=== PATIENT | male | born 1965 | race Caucasian/White ===

== ENCOUNTER 2018-07-30 11:17 | Emergency (ER) | payer MEDICAID ==
[2018-07-30] MEDS ORDERED: Sodium Chloride 0.9% 1000 ML 1,000 ML ONE (11:24)
[2018-07-30] MEDS ORDERED: Zofran 4 MG/2 ML VIAL ONE (11:24)
[2018-07-30] MEDS ORDERED: TORAdol 30 mg Injection ONE (11:24)
[2018-07-30] MEDS ORDERED: Sodium Chloride 0.9% 1000 ML 1,000 ML IV STA (11:30)
[2018-07-30] MEDS ORDERED: Zofran 4 MG/2 ML VIAL IV ONE (11:30)
[2018-07-30] MEDS ORDERED: TORAdol 30 mg Injection IV ONE (11:30)
[2018-07-30 11:33] VITALS: O2SAT 98
[2018-07-30] MEDS ORDERED: MORPHINE SULFATE 4 MG INJ IV ONE ×2 (11:35→11:42)
--- NOTE | 2018-07-30 11:35 | ERPHSYRPT ---
- History of Present Illness Time Seen by Provider: 07/30/18 11:27 Historian: patient Exam Limitations: no limitations Physician History: 53-year-old white male arrives with complaint of severe pain in his right flank radiating to his right groin symptoms for one half hour she denies any injury no nausea no vomiting no dysuria no hematuria. Past medical history is negative. Past surgical history is negative. Social history patient denies tobacco alcohol illicit drug use Timing/Duration: today (on a half hours ago) Activities at Onset: none Quality: aching, sharpness Abdominal Pain Onset Location: RLQ, flank (right flank) Severity of Pain-Max: moderate Severity of Pain-Current: moderate Modifying Factors: Improves With: nothing Associated Symptoms: back (right flank pain), testicular pain, No chest pain, No diaphoresis, No diarrhea, No fever/chills, No fatigue, No heartburn, No loss of appetite, No nausea, No neck pain, No rash, No shortness of breath, No syncope, No vomiting, No weakness Previous symptoms: no prior history Allergies/Adverse Reactions: No Known Drug Allergies Allergy (Verified 07/30/18 11:22) Home Medications: No Home Meds [No Home Meds] 1 ea UD 01/11/14 [History] Hx Tetanus, Diphtheria Vaccination/Date Given: No Hx Influenza Vaccination/Date Given: No Hx Pneumococcal Vaccination/Date Given: No - Review of Systems Constitutional: No Fever, No Chills Eyes: No Symptoms Ears, Nose, & Throat: No Symptoms Respiratory: No Cough, No Dyspnea Cardiac: No Chest Pain, No Edema, No Syncope Abdominal/Gastrointestinal: Abdominal Pain (rright-sided abdominal pain), No Nausea, No Vomiting, No Diarrhea, No Constipation, No Hematemesis, No Hematochezia, No Melena, No Dysphagia Genitourinary Symptoms: Flank Pain (right flank pain), No Dysuria, No Frequency , No Hematuria, No Hesitancy, No Incontinence, No Urgency, No Urinary Retention (for) Musculoskeletal: No Back Pain, No Neck Pain Skin: No Rash Neurological: No Dizziness, No Focal Weakness, No Sensory Changes Psychological: No Symptoms Endocrine: No Symptoms All Other Systems: Reviewed and Negative - Past Medical History Pertinent Past Medical History: No - Past Surgical History Past Surgical History: No - Social History Smoking Status: Never smoker Exposure to second hand smoke: No Drug Use: none Patient Lives Alone: No - Nursing Vital Signs Nursing Vital Signs: Initial Vital Signs Temperature 97.0 F 07/30/18 11:29 Pulse Rate 104 H 07/30/18 11:29 Respiratory Rate 20 07/30/18 11:29 Blood Pressure 177/98 07/30/18 11:29 O2 Sat by Pulse Oximetry 98 07/30/18 11:29 Pain Scale Pain Intensity 4 - Physical Exam General Appearance: moderate distress, alert Eye Exam: PERRL/EOMI, eyes nml inspection Ears, Nose, Throat Exam: normal ENT inspection, pharynx normal, moist mucous membranes Neck Exam: normal inspection, non-tender, supple, full range of motion Respiratory Exam: normal breath sounds, lungs clear, No respiratory distress Cardiovascular Exam: regular rate/rhythm, normal heart sounds, capillary refill <2 sec Gastrointestinal/Abdomen Exam: soft, No tenderness, No mass Back Exam: CVA tenderness (right flank tenderness) Extremity Exam: normal inspection, normal range of motion, pelvis stable Neurologic Exam: alert, oriented x 3, cooperative, oriental medicine practitioner II-XII nml as tested, normal mood/affect, nml cerebellar function, sensation nml, No motor deficits Skin Exam: normal color, warm, dry SpO2 Interpretation: normal - Course Nursing assessment & vital signs reviewed: Yes - CT Exams Abdomen/Pelvis CT Interpretation: Discussed w/radiologist (CT abdomen and pelvis: Impression 1. Right posterior urinary bladder microcalculus, there is also mild right hydronephrosis and hydroureter from recent passage of calculus. 2. Additional bilateral renal mitral calculi and incidental bilateral renal cysts. 3. Small hiatal hernia. Distal esophagus circumferential wall thickening concerning for reflux esophagitis.) Ordered Tests: Active Orders 24 hr Category Date Time Status ABDOMEN AND PELVIS W/0 CONTRAS [CT] Stat Exams 07/30/18 11:30 Completed AMYLASE Stat Lab 07/30/18 11:25 Completed CBC W DIFF Stat Lab 07/30/18 11:25 Completed CMP Stat Lab 07/30/18 11:25 Completed LIPASE Stat Lab 07/30/18 11:25 Completed UA W/RFX UR CULTURE Stat Lab 07/30/18 13:00 Completed Urine Triage Profile Stat Lab 07/30/18 13:00 Ordered Medication Summary Discontinued Medications Generic Name Dose Route Start Last Admin Trade Name Freq PRN Reason Stop Dose Admin Sodium Chloride Confirm 07/30/18 11:24 Sodium Chloride 0.9% 1000 Ml Administered 07/30/18 11:25 Dose 1,000 mls @ ud .ROUTE .STK-MED ONE Sodium Chloride 1,000 mls @ 999 mls/hr 07/30/18 11:30 07/30/18 12:55 Sodium Chloride 0.9% 1000 Ml IV 07/30/18 12:30 Infused .Q1H1M STA Infusion Ketorolac Tromethamine Confirm 07/30/18 11:24 Toradol 30 Mg Injection Administered 07/30/18 11:25 Dose 30 mg .ROUTE .STK-MED ONE Ketorolac Tromethamine 30 mg 07/30/18 11:30 07/30/18 11:39 Toradol 30 Mg Injection IV 07/30/18 11:31 30 mg STAT ONE Administration Morphine Sulfate 4 mg 07/30/18 11:35 07/30/18 11:40 Morphine Sulfate 4 Mg Inj IV 07/30/18 11:36 4 mg STAT ONE Administration Morphine Sulfate Confirm 07/30/18 11:36 Morphine Sulfate 4 Mg Inj Administered 07/30/18 11:37 Dose 4 mg .ROUTE .STK-MED ONE Morphine Sulfate 4 mg 07/30/18 11:42 07/30/18 11:45 Morphine Sulfate 4 Mg Inj IV 07/30/18 11:43 4 mg STAT ONE Administration Morphine Sulfate Confirm 07/30/18 11:45 Morphine Sulfate 4 Mg Inj Administered 07/30/18 11:46 Dose 4 mg .ROUTE .STK-MED ONE Ondansetron HCl Confirm 07/30/18 11:24 Zofran 4 Mg/2 Ml Vial Administered 07/30/18 11:25 Dose 4 mg .ROUTE .STK-MED ONE Ondansetron HCl 4 mg 07/30/18 11:30 07/30/18 11:39 Zofran 4 Mg/2 Ml Vial IV 07/30/18 11:31 4 mg STAT ONE Administration Lab/Rad Data: Laboratory Result Diagrams 07/30/18 11:25 07/30/18 11:25 Laboratory Results 07/30/18 07/30/18 07/30/18 Range/Units 13:00 11:25 11:25 WBC 15.7 H (4.0-10.5) K/mm3 RBC 4.35 (4.1-5.6) M/mm3 Hgb 14.2 (12.5-18.0) gm/dl Hct 42.1 (42-50) % MCV 96.8 (78-100) fl MCH 32.6 H (26-32) pg MCHC 33.7 (32-36) g/dl RDW 13.2 (11.5-14.0) % Plt Count 213 (150-450) K/mm3 MPV 10.0 H (6-9.5) fl Gran % 80.9 H (36.0-66.0) % Eos # (Auto) 0.26 (0-0.5) Absolute Lymphs (auto) 1.65 (1.0-4.6) Absolute Monos (auto) 1.04 (0.0-1.3) Lymphocytes % 10.5 L (24.0-44.0) % Monocytes % 6.6 (0.0-12.0) % Eosinophils % 1.7 (0.00-5.0) % Basophils % 0.3 (0.0-0.4) % Absolute Granulocytes 12.70 H (1.4-6.9) Basophils # 0.04 (0-0.4) Sodium 138 (137-145) mmol/L Potassium 3.7 (3.5-5.1) mmol/L Chloride 105 (98-107) mmol/L Carbon Dioxide 21 L (22-30) mmol/L Anion Gap 15.8 H (5-15) MEQ/L BUN 17 (9-20) mg/dL Creatinine 0.80 (0.66-1.25) mg/dL Estimated GFR > 60.0 ML/MIN Glucose 138 H (74-106) mg/dL Calcium 9.9 (8.4-10.2) mg/dL Total Bilirubin 0.30 (0.2-1.3) mg/dL AST 21 (17-59) U/L ALT 20 (0-50) U/L Alkaline Phosphatase 55 (38-126) U/L Serum Total Protein 7.8 (6.3-8.2) g/dL Albumin 4.7 (3.5-5.0) g/dL Amylase 64 (30-110) U/L Lipase 54 (23-300) U/L Urine Color YELLOW (YELLOW) Urine Appearance CLEAR (CLEAR) Urine pH 6.0 (5-6) Ur Specific Mccleary 1.014 (1.005-1.025) Urine Protein NEGATIVE (Negative) Urine Ketones SMALL (NEGATIVE) Urine Blood NEGATIVE (0-5) Bradley/ul Urine Nitrite NEGATIVE (NEGATIVE) Urine Bilirubin NEGATIVE (NEGATIVE) Urine Urobilinogen NEGATIVE (0-1) mg/dL Ur Leukocyte Esterase NEGATIVE (NEGATIVE) Urine WBC (Auto) 3-5 (0-5) /HPF Urine RBC (Auto) 3-5 (0-2) /HPF U Epithel Cells (Auto) RARE (FEW) /HPF Urine Bacteria (Auto) RARE (NEGATIVE) /HPF Urine Mucus (Auto) SLIGHT (NEGATIVE) /HPF Urine Culture Reflexed NO (NO) Urine Glucose NEGATIVE (NEGATIVE) mg/dL - Progress Progress: improved Progress Note: 07/30/18 13:18 Patient is feeling better asking for something to eat no longer nauseous. Patient's CT of the abdomen shows a right posterior urinary bladder microbe- calculus,. There is also mild right hydronephrosis and hydroureter from recent passage of calculus. There are additional bilateral renal microbe-calculi and incidental bilateral renal cysts. There is a small hiatal hernia distal esophagus circumferential wall thickening concerning for reflux esophagitis. Will plan to give the patient clear liquid diet here in the ER then plan to discharge. Will write for [place] for pain Zofran for nausea. Patient advised to followup with his family . - Departure Departure Disposition: Home Clinical Impression: Right flank pain Urolithiasis Qualifiers: Urinary calculus location: kidney and ureter Qualified Code(s): N20.2 - Calculus of kidney with calculus of ureter Condition: Fair Critical Care Time: No Referrals: DOCTOR,NO FAMILY [Primary Care Provider] - Additional Instructions: Return home. Plenty of fluids clear fluids only 24-48 hours if abdominal pain. [place] as prescribed. Zofran as prescribed. Strain all urine. Followup with your family . You were noted to have some changes in your esophagus which are concerning for reflux. Your advised to followup with your family concerning this. You were also noted to have a small kidney stone in your bladder strain your urine and bring the stone to your family if stone is recovered. Return for acute distress or for severe symptoms Prescriptions: Hydrocodone/APAP 5-325 Tab^^^ [[place] 5-325 Tablet^^^] 1 tab PO Q4HPRN PRN #12 tablet MDD 6 PRN Reason: flank pain Ondansetron ODT 4 MG [Zofran Odt 4 mg] 4 mg PO Q6H PRN PRN #10 tab.rapdis PRN Reason: nausea and vomiting
[2018-07-30] MEDS ORDERED: MORPHINE SULFATE 4 MG INJ ONE ×2 (11:36→11:45)
[2018-07-30 11:39] LABS: BASOPHIL % 0.3 % (0.0-0.4); Basophil (Absolute #) 0.04 (0-0.4); Eosinophil % 1.7 % (0.00-5.0); Eosinophil (Absolute #) 0.26 (0-0.5); Granulocytes % 80.9 % (36.0-66.0); Hematocrit 42.1 % (42-50); Hemoglobin 14.2 gm/dl (12.5-18.0); Lymphocyte (Absolute #) 1.65 (1.0-4.6); Lymphocytes % 10.5 % (24.0-44.0); Mean Cell Volume 96.8 fl (78-100); Mean Corpuscular Hemoglobin 32.6 pg (26-32); Mean Corpuscular Hgb Concent. 33.7 g/dl (32-36); Monocyte (Absolute #) 1.04 (0.0-1.3); Monocytes % 6.6 % (0.0-12.0); Platelet Count 213 K/mm3 (150-450); Red Blood Count 4.35 M/mm3 (4.1-5.6); Red Cell Distribution Width 13.2 % (11.5-14.0); White Blood Count 15.7 K/mm3 (4.0-10.5)
[2018-07-30 11:44] LABS: ALBUMIN 4.7 g/dL (3.5-5.0); ALKALINE PHOSPHATASE 55 U/L (38-126); AMYLASE 64 U/L (30-110); ANION GAP 15.8 MEQ/L (5-15); BLOOD UREA NITROGEN 17 mg/dL (9-20); CHLORIDE 105 mmol/L (98-107); Calcium 9.9 mg/dL (8.4-10.2); Carbon Dioxide 21 mmol/L (22-30); Glucose 138 mg/dL (74-106); LIPASE 54 U/L (23-300); Potassium 3.7 mmol/L (3.5-5.1); SGOT/AST 21 U/L (17-59); SGPT/ALT 20 U/L (0-50); SODIUM 138 mmol/L (137-145); Total Protein 7.8 g/dL (6.3-8.2)
[2018-07-30 11:55] VITALS: BP 196/96
--- NOTE | 2018-07-30 12:21 | XRAY ---
Indication: Right flank pain. Multiple contiguous axial images obtained through the abdomen and pelvis without contrast using renal stone protocol. Comparison: None Lung bases are clear. Heart is not enlarged. Small hiatal hernia. Distal esophagus demonstrates mild circumferential wall thickening, possible reflux esophagitis. 4-5 mm right posterior urinary bladder calculus. Right ureter is prominent up to 7 mm along with mild hydronephrosis consistent with recent passage of said calculus. Additional multiple bilateral renal micro-calculi. A few bilateral renal cortical cysts, largest right midpole measuring 2 cm. Noncontrasted stomach and bowel loops appear nonobstructed. Normal appendix. Remaining liver, gallbladder, pancreas, spleen, adrenal glands, kidneys, ureters, bladder, and aorta appear unremarkable for noncontrast exam. Osseous structures intact with mild degenerative changes at the L5-S1 level. No ventral or inguinal hernias. Impression: 1. Right posterior urinary bladder micro-calculus. There is also mild right hydronephrosis and hydroureter from recent passage of calculus. 2. Additional bilateral renal micro-calculi and incidental bilateral renal cysts. 3. Small hiatal hernia. Distal esophagus circumferential wall thickening concerning for reflux esophagitis. CT DI 21.22
[2018-07-30 13:10] VITALS: PULSE 70
[2018-07-30 13:11] LABS: Appearance CLEAR (CLEAR); Bacteria RARE /HPF (NEGATIVE); Bilirubin NEGATIVE (NEGATIVE); Blood NEGATIVE Ery/ul (0-5); Epithelial Cells RARE /HPF (FEW); Glucose NEGATIVE (NEGATIVE); Ketones SMALL (NEGATIVE); Leukocyte Esterase NEGATIVE (NEGATIVE); Mucus SLIGHT /HPF (NEGATIVE); Nitrite NEGATIVE (NEGATIVE); Protein,Urine Dip NEGATIVE (Negative); Specific Gravity 1.014 (1.005-1.025); Urobilinogen NEGATIVE mg/dL (0-1)
[2018-07-30 13:37] LABS: Amphetamine,Urine NEGATIVE (NEGATIVE); Barbiturate,Urine NEGATIVE (NEGATIVE); Benzodiazepine,Urine NEGATIVE (NEGATIVE); Cocaine,Urine NEGATIVE (NEGATIVE); Methadone,Urine NEGATIVE (NEGATIVE); Opiate,Urine POSITIVE (NEGATIVE); PCP,Urine NEGATIVE (NEGATIVE); THC,Urine POSITIVE (NEGATIVE)
== END 2018-07-30 13:40 | disposition home or self-care (01) ==
LOC: ED 11:17
DX: N20.2 Calculus of kidney with calculus of ureter (principal)
CPT/HCPCS: 36000; 36415; 74176; 80053; 80307; 81001; 82150; 83690; 85025; 96360; 96374; 96375; 96376; 99284; J1885; J2270; J2405